=== PATIENT | male | born 1990 | race Two or more races ===

== ENCOUNTER 2018-01-22 16:56 | Inpatient (IN) | payer MEDICAID ==
[~2018-01-22] VITALS: Ht 185.4 cm; Wt 83.9 kg
[2018-01-22 16:55] VITALS: BP 148/70
[2018-01-22] MEDS ORDERED: LORazepam Inj 2mg/ml 1ml IV ONE (17:15)
--- NOTE | 2018-01-22 17:16 | Emergency Room Report ---
History of Present Illness General Chief Complaint: Substance Abuse Source: EMS Present Illness HPI 27-year-old male, no significant past medical history, presenting with intoxication. Patient states that he did meth this morning, for the first time in a long time, now feeling extremely anxious, feels like bugs are calling out from his skin and from his pants. Denies any other drug use except for the meth. No suicidal or homicidal thoughts Allergies: Coded Allergies: No Known Allergies (Unverified , 01/22/18) Patient History Past Medical History: see triage record Past Surgical History: none Pertinent Family History: none Reviewed Nursing Documentation: PMH: Agreed; PSxH: Agreed Nursing Documentation-PMH Hx Neurological Problems: Yes - BIPOLAR,DEPRESSION Review of Systems All Other Systems: negative except mentioned in HPI Physical Exam Vital Signs Date Time Temp Pulse Resp B/P (MAP) Pulse Ox O2 Delivery O2 Flow Rate FiO2 01/22/18 16:39 98.8 104 16 148/70 98 Room Air 98.8 Sp02 EP Interpretation: reviewed, normal General Appearance: moderate distress, other - Anxious, cannot sit still, however conversing appropriately Head: normocephalic, atraumatic Eyes: bilateral eye normal inspection, bilateral eye PERRL, bilateral eye EOMI ENT: normal ENT inspection, normal pharynx, normal voice, moist mucus membranes Neck: normal inspection, full range of motion, supple Respiratory: normal inspection, lungs clear, normal breath sounds, no respiratory distress, no retraction, no wheezing, speaking full sentences, chest symmetrical Cardiovascular #1: normal inspection, regular rate, rhythm, no edema, normal capillary refill Cardiovascular #2: 2+ radial (R), 2+ radial (L) Gastrointestinal: normal inspection, non tender, soft, non-distended, no guarding Genitourinary: no CVA tenderness Musculoskeletal: normal inspection, back normal, normal range of motion, non- tender Neurologic: normal inspection, alert, oriented x3, responsive, motor strength/ tone normal, sensory intact, normal gait, speech normal Psychiatric: normal inspection, judgement/insight normal, memory normal Skin: normal inspection, normal color, no rash, warm/dry, well hydrated, normal turgor Medical Decision Making Diagnostic Impression: Primary Impression: Substance abuse Additional Impressions: Renal failure Rhabdomyolysis ER Course 27-year-old male, admitted to meth use, now very anxious, feels like things are crawling on his skin DDX: Intoxication, rule out other toxic overdose Plan: Obtain labs, toxicology labs, Ativan ER course: Vital signs stable given ativan, has now been sleeping comfortably +rhabdo and renal failure- given fluids Disposition: Patient is to be admitted to [facility] hospitalist DR MALLORY Please note that this Emergency Department Report was dictated using [employer] worker technology software, occasionally this can lead to erroneous entry secondary to interpretation by the dictation equipment EKG Diagnostic Results EP Interpretation: Yes Rate:tach Rhythm: NSR ST Segments: No acute changes ASA given to patient: No Laboratory Tests Test 01/22/18 17:20 White Blood Count 12.3 K/UL (4.8-10.8) H Red Blood Count 5.94 M/UL (4.70-6.10) Hemoglobin 17.1 G/DL (14.2-18.0) Hematocrit 50.0 % (42.0-52.0) Mean Corpuscular Volume 84 FL (80-99) Mean Corpuscular Hemoglobin 28.7 PG (27.0-31.0) Mean Corpuscular Hemoglobin Concent 34.1 G/DL (32.0-36.0) Red Cell Distribution Width 10.6 % (11.6-14.8) L Platelet Count 231 K/UL (150-450) Mean Platelet Volume 6.3 FL (6.5-10.1) L Neutrophils (%) (Auto) 72.7 % (45.0-75.0) Lymphocytes (%) (Auto) 15.1 % (20.0-45.0) L Monocytes (%) (Auto) 10.3 % (1.0-10.0) H Eosinophils (%) (Auto) 0.1 % (0.0-3.0) Basophils (%) (Auto) 1.8 % (0.0-2.0) Sodium Level 138 MMOL/L (136-145) Potassium Level 4.1 MMOL/L (3.5-5.1) Chloride Level 97 MMOL/L (98-107) L Carbon Dioxide Level 26 MMOL/L (21-32) Anion Gap 16 mmol/L (5-15) H Blood Urea Nitrogen 31 mg/dL (7-18) H Creatinine 2.4 MG/DL (0.55-1.30) H Estimate Glomerular Filtration Rate 32.4 mL/min (>60) Glucose Level 80 MG/DL (74-106) Calcium Level 9.3 MG/DL (8.5-10.1) Total Bilirubin 4.4 MG/DL (0.2-1.0) H Direct Bilirubin 0.5 MG/DL (0.0-0.3) H Aspartate Amino Transferase (AST) 240 U/L (15-37) H Alanine Aminotransferase (ALT) 109 U/L (12-78) H Alkaline Phosphatase 61 U/L (46-116) Total Creatine Kinase 7952 U/L (26-308) H Total Protein 8.3 G/DL (6.4-8.2) H Albumin 4.7 G/DL (3.4-5.0) Globulin 3.6 g/dL Albumin/Globulin Ratio 1.3 (1.0-2.7) Salicylates Level < 0.2 ug/mL (2.8-20) L Acetaminophen Level < 2 MCG/ML (10-30) L Serum Alcohol 5 mg/dL Last Vital Signs Date Time Temp Pulse Resp B/P (MAP) Pulse Ox O2 Delivery O2 Flow Rate FiO2 01/22/18 16:55 98.8 104 16 148/70 98 Room Air 98.8 Disposition: ADMITTED INPATIENT Condition: Serious Patient Instructions: Stimulant Use Disorder-Karely Martin M.D. Jan 22, 2018 17:16
[2018-01-22 17:51] LABS: BASOPHILS % (AUTO) 1.8 % (0.0-2.0); EOSINOPHILS % (AUTO) 0.1 % (0.0-3.0); HEMOGLOBIN 17.1 G/DL (14.2-18.0); LYMPHOCYTES % (AUTO) 15.1 % (20.0-45.0); MEAN CORPUSCULAR VOLUME 84 FL (80-99); MONOCYTES % (AUTO) 10.3 % (1.0-10.0); NEUTROPHILS % (AUTO) 72.7 % (45.0-75.0); PLATELET COUNT 231 K/UL (150-450); RED BLOOD COUNT 5.94 M/UL (4.70-6.10); RED CELL DISTRIBUTION WIDTH 10.6 % (11.6-14.8); WHITE BLOOD COUNT 12.3 K/UL (4.8-10.8)
[2018-01-22 18:06] LABS: ANION GAP 16 mmol/L (5-15); BLOOD UREA NITROGEN 31 mg/dL (7-18); CALCIUM 9.3 MG/DL (8.5-10.1); CARBON DIOXIDE 26 MMOL/L (21-32); CHLORIDE 97 MMOL/L (98-107); CREATININE 2.4 MG/DL (0.55-1.30); POTASSIUM 4.1 MMOL/L (3.5-5.1); SODIUM 138 MMOL/L (136-145)
[2018-01-22 18:19] LABS: ALANINE AMINOTRANSFERASE 109 U/L (12-78); ALBUMIN 4.7 G/DL (3.4-5.0); ALBUMIN/GLOBULIN RATIO 1.3 (1.0-2.7); ALKALINE PHOSPHATASE 61 U/L (46-116); ASPARTATE AMINO TRANSFERASE 240 U/L (15-37); BILIRUBIN,TOTAL 4.4 MG/DL (0.2-1.0)
[2018-01-22 18:29] LABS: BILIRUBIN,DIRECT 0.5 MG/DL (0.0-0.3)
[2018-01-22 19:05] LABS: CREATINE KINASE 7952 U/L (26-308)
[2018-01-22] MEDS ORDERED: LORazepam 1mg tab ORAL PRN (21:00)
[2018-01-22 22:26] VITALS: BP 138/89
[2018-01-22 22:40] VITALS: BP 127/74
[2018-01-22] MEDS: Sodium Bicarbonate 50 ML in 1/2 NS 1000ml 1,000 ML IV SCH (23:35)
[2018-01-22] MEDS: Piperacillin/Tazobactam 3.375 GM in NS 110 ML IVPB SCH (23:36)
[2018-01-23 04:00] VITALS: BP 117/73
[2018-01-23] MEDS: Piperacillin/Tazobactam 3.375 GM in NS 110 ML IVPB SCH ×3 (06:36→21:09)
[2018-01-23] MEDS: Sodium Bicarbonate 50 ML in 1/2 NS 1000ml 1,000 ML IV SCH ×2 (06:36→17:38)
[2018-01-23 07:10] LABS: APPEARANCE,URINE CLEAR; BILIRUBIN, URINE NEGATIVE (NEGATIVE); GLUCOSE, URINE (UA) NEGATIVE (NEGATIVE); KETONES,URINE 4+ (NEGATIVE); LEUKOCYTE ESTERASE ,URINE 1+ (NEGATIVE); NITRITE,URINE NEGATIVE (NEGATIVE); PH,URINE 6 (4.5-8.0); PROTEIN,URINE 1+ (NEGATIVE); UROBILINOGEN,URINE NORMAL MG/DL (0.0-1.0)
[2018-01-23 07:11] LABS: COLOR,URINE YELLOW
[2018-01-23 07:17] LABS: BASOPHILS % (AUTO) 2.7 % (0.0-2.0); HEMATOCRIT 44.5 % (42.0-52.0); HEMOGLOBIN 15.3 G/DL (14.2-18.0); LYMPHOCYTES % (AUTO) 22.5 % (20.0-45.0); MEAN CORPUSCULAR VOLUME 85 FL (80-99); NEUTROPHILS % (AUTO) 61.8 % (45.0-75.0); PLATELET COUNT 204 K/UL (150-450); RED BLOOD COUNT 5.25 M/UL (4.70-6.10); RED CELL DISTRIBUTION WIDTH 10.6 % (11.6-14.8); WHITE BLOOD COUNT 7.5 K/UL (4.8-10.8)
[2018-01-23 07:34] LABS: ANION GAP 10 mmol/L (5-15); BLOOD UREA NITROGEN 20 mg/dL (7-18); CALCIUM 8.1 MG/DL (8.5-10.1); CARBON DIOXIDE 25 MMOL/L (21-32); CHLORIDE 101 MMOL/L (98-107); CREATININE 1.3 MG/DL (0.55-1.30); POTASSIUM 3.5 MMOL/L (3.5-5.1); SODIUM 136 MMOL/L (136-145)
[2018-01-23 07:48] LABS: ALANINE AMINOTRANSFERASE 90 U/L (12-78); ALBUMIN 3.6 G/DL (3.4-5.0); ALBUMIN/GLOBULIN RATIO 1.1 (1.0-2.7); ALKALINE PHOSPHATASE 50 U/L (46-116); ASPARTATE AMINO TRANSFERASE 166 U/L (15-37); BILIRUBIN,TOTAL 4.2 MG/DL (0.2-1.0); CREATINE KINASE 5144 U/L (26-308)
[2018-01-23 07:56] LABS: BILIRUBIN,DIRECT 0.4 MG/DL (0.0-0.3)
[2018-01-23 08:00] VITALS: BP 122/66
[2018-01-23] MEDS: Heparin 5000 units/ml inj SUBQ SCH ×2 (08:57→20:51)
[2018-01-23 12:00] VITALS: BP 126/69
[2018-01-23 16:00] VITALS: BP 129/74
[2018-01-23] MEDS ORDERED: Tubing IV Secondary IV ONE (18:18)
[2018-01-23] MEDS ORDERED: NS 275ml ONE (18:18)
[2018-01-23 20:00] VITALS: BP 106/65
--- NOTE | 2018-01-23 21:30 | History and Physical Report ---
DATE OF ADMISSION: 01/22/2018 CHIEF COMPLAINT: Rhabdomyolysis and drug overdose. HISTORY OF PRESENT ILLNESS: The patient is a 27-year-old male with no past medical history. He smoked methamphetamines and developed severe chest pain and shortness of breath. He presented to the emergency room where laboratories showed acute renal failure and rhabdomyolysis. The patient has been started on IV hydration. He is now admitted. PAST MEDICAL HISTORY: He has no past medical history. PAST SURGICAL HISTORY: He has had surgery for fracture. ALLERGIES: No allergies. MEDICATIONS: No medications. FAMILY HISTORY: No family history. SOCIAL HISTORY: Denies any alcohol or any additional drugs. He does not smoke. REVIEW OF SYSTEMS: Negative except for chest pain. PHYSICAL EXAMINATION: VITAL SIGNS: Temperature 98 degrees, pulse 88, respirations 20, and blood pressure 117/73. GENERAL: The patient is well developed, in no apparent distress. HEART: Regular rate and rhythm. LUNGS: Clear. ABDOMEN: Soft. EXTREMITIES: Without clubbing or cyanosis. There is no muscle tenderness noted. No edema. LABORATORY AND DIAGNOSTIC DATA: Sodium 138, potassium 4.1, BUN 31, creatinine 2.4, total bilirubin 4.4, AST 240, ALT 109. CK was 8000. ASSESSMENT: This is a pleasant male admitted with complaints of rhabdomyolysis secondary to drug use. PROBLEMS: 1. Rhabdomyolysis. 2. Acute renal failure. PLAN: IV hydration. Follow CK level. Follow renal function. Karthikeyan Sheriff M.D. DR: CHRIS JOB#: [id number] CC:
[2018-01-24] VITALS: BP 114/60
[2018-01-24] MEDS: Sodium Bicarbonate 50 ML in 1/2 NS 1000ml 1,000 ML IV SCH ×2 (02:42→10:48)
[2018-01-24 04:00] VITALS: BP 111/64
[2018-01-24] MEDS: Piperacillin/Tazobactam 3.375 GM in NS 110 ML IVPB SCH ×2 (05:39→14:00)
[2018-01-24 09:00] VITALS: BP 128/77
[2018-01-24] MEDS: Heparin 5000 units/ml inj SUBQ SCH (09:00)
[2018-01-24 11:39] LABS: ALANINE AMINOTRANSFERASE 71 U/L (12-78); ALBUMIN 3.2 G/DL (3.4-5.0); ALBUMIN/GLOBULIN RATIO 1.2 (1.0-2.7); ALKALINE PHOSPHATASE 46 U/L (46-116); ANION GAP 2 mmol/L (5-15); ASPARTATE AMINO TRANSFERASE 96 U/L (15-37); BILIRUBIN,DIRECT 0.3 MG/DL (0.0-0.3); BILIRUBIN,TOTAL 1.5 MG/DL (0.2-1.0); BLOOD UREA NITROGEN 8 mg/dL (7-18); CALCIUM 8.1 MG/DL (8.5-10.1); CARBON DIOXIDE 32 MMOL/L (21-32); CHLORIDE 106 MMOL/L (98-107); CREATINE KINASE 2765 U/L (26-308); POTASSIUM 3.8 MMOL/L (3.5-5.1); SODIUM 140 MMOL/L (136-145)
[2018-01-24 12:05] VITALS: BP 121/69
--- NOTE | 2018-01-24 17:15 | Discharge Summary ---
DATE OF ADMISSION: 01/22/2018 DATE OF DISCHARGE: 01/24/2018 ADMISSION DIAGNOSES: 1. Rhabdomyolysis secondary to drug use. 2. Acute renal failure. DISCHARGE DIAGNOSES: 1. Rhabdomyolysis secondary to drug use. 2. Acute renal failure. HOSPITAL COURSE: The patient is a 27-year-old male who was brought in with complaints of shortness of breath. He smoked methamphetamine, came in with acute renal failure secondary to rhabdomyolysis. He had elevated liver function tests, believed to be secondary to his drug use. The patient was hydrated with fluids and bicarbonate. CK and renal function improved, as did his liver function. On discharge, he was stable. The patient will be discharged home. He is instructed to follow up with his PMD in one to two weeks for a followup. DISCHARGE MEDICATIONS: Please see discharge medication list for discharge medications. DIET: Regular diet. ACTIVITY: Ad-ling. Karthikeyan Sheriff M.D. DR: PAUL JOB#: [id number] CC:
== END 2018-01-24 15:54 | disposition home or self-care (01) | DRG 812 ==
LOC: EDBD 16:56 → EMR 18:34 → 4E 19:07 → EDBEDREQ 21:31
DX: T43.621A Poisoning by amphetamines, accidental (unintentional), initial encounter (principal); N17.9 Acute kidney failure, unspecified; M62.82 Rhabdomyolysis; F15.10 Other stimulant abuse, uncomplicated; R07.9 Chest pain, unspecified; R79.89 Other specified abnormal findings of blood chemistry
CPT/HCPCS: 36415; 80053; 80307; 80329; 81003; 82248; 82550; 85025; 86592; 87081; 87205; 87491; 93005